=== PATIENT | female | born 1990 | race Caucasian/White ===

== ENCOUNTER 2019-10-07 15:30 | Emergency (ER) | payer OTHER ==
[2019-10-07 15:51] VITALS: BP 111/65; PULSE 107; TEMP 98.9; BMI 25.7
--- NOTE | 2019-10-07 15:52 | PDOC ---
Rapid Medical Evaluation Chief Complaint: Headache Time Seen by Provider: 10/07/19 15:47 Medical Evaluation: 10/07/19 15:49 I have performed a brief in-person evaluation of this patient. The patient presents with a chief complaint of:+ intracranial HTN, severe headache s/p spinal tap last - seen by Eduar yesterday, given Fiorocet with no relief. Pertinent physical exam findings: pale, + photophobic, squirming/ leaning over and has difficulty sitting. I have ordered the following: CBC, CMP, UA, The patient will proceed to the ED for further evaluation. Discharge Disposition - Diagnosis Headache after spinal puncture - Referrals - Patient Instructions - Post Discharge Activity
[2019-10-07 16:37] LABS: BASO % 0.9 % (0-2.0); EOS % 1.5 % (0-4.5); HEMATOCRIT 40.4 % (32.4-45.2); HEMOGLOBIN 13.4 GM/dL (10.7-15.3); LYMPH % 22.8 % (8-40); MCH 27.6 pg (25.7-33.7); MCHC 33.1 g/dl (32.0-36.0); MEAN CELL VOLUME 83.5 fl (80-96); MEAN PLT VOLUME 9.1 fl (7.5-11.1); MONO % 6.9 % (3.8-10.2); NEUT % 67.9 % (42.8-82.8); PLATELET COUNT 233 K/MM3 (134-434); RBC 4.84 M/mm3 (3.60-5.2); RDW 13.2 % (11.6-15.6); WHITE BLOOD COUNT 9.1 K/mm3 (4.0-10.0)
[2019-10-07 16:50] LABS: INR 1.18 (0.83-1.09); PROTHROMBIN TIME (PATIENT) 13.9 SEC (9.7-13.0)
[2019-10-07 17:02] LABS: ALBUMIN 3.8 g/dl (3.4-5.0); BILIRUBIN,TOTAL 0.4 mg/dL (0.2-1); BLOOD UREA NITROGEN 18.5 mg/dL (7-18); CREATININE 0.8 mg/dL (0.55-1.3); POTASSIUM 3.4 mmol/L (3.5-5.1); TOT PROT 6.9 g/dl (6.4-8.2)
--- NOTE | 2019-10-07 17:53 | PDOC ---
History of Present Illness <Gopal Jarquin - Last Filed: 10/07/19 19:02> <Debbie Arnold - Last Filed: 10/07/19 22:29> - General Chief Complaint: Headache Stated Complaint: Migraine Headache Time Seen by Provider: 10/07/19 15:47 Past History - Past Medical History COPD: No Other medical history: INTRACRANIEL HYPERTENSION - Psycho Social/Smoking Cessation Hx Smoking History: Never smoked Hx Alcohol Use: No Drug/Substance Use Hx: No <Gopal Jarquin - Last Filed: 10/07/19 19:02> <Debbie Arnold - Last Filed: 10/07/19 22:29> - Past Medical History Allergies/Adverse Reactions: Allergies Allergy/AdvReac Type Severity Reaction Status Date / Time vancomycin Allergy Verified 10/07/19 15:51 Home Medications: Ambulatory Orders Levothyroxine [Synthroid -] 125 mcg PO DAILY 10/07/19 acetaZOLAMIDE [Diamox -] 500 mg PO TID 10/07/19 *Physical Exam - Vital Signs Last Vital Signs Temp Pulse Resp BP Pulse Ox 98.9 F 107 H 16 111/65 100 10/07/19 15:47 10/07/19 15:47 10/07/19 15:47 10/07/19 15:47 10/07/19 15:47 <Gopal Jarquin - Last Filed: 10/07/19 19:02> - Vital Signs Last Vital Signs Temp Pulse Resp BP Pulse Ox 98.9 F 107 H 16 111/65 100 10/07/19 15:47 10/07/19 15:47 10/07/19 15:47 10/07/19 15:47 10/07/19 15:47 <Debbie Arnold - Last Filed: 10/07/19 22:29> ED Treatment Course - LABORATORY CBC & Chemistry Diagram: 10/07/19 16:23 10/07/19 16:23 - ADDITIONAL ORDERS Additional order review: Laboratory Results 10/07/19 10/07/19 16:23 16:23 PT with INR 13.90 H INR 1.18 H Sodium 139 Potassium 3.4 L Chloride 112 H Carbon Dioxide 19 L Anion Gap 8 BUN 18.5 H Creatinine 0.8 Est GFR (CKD-EPI)AfAm 113.86 Est GFR (CKD-EPI)NonAf 98.24 Random Glucose 77 Calcium 9.0 Total Bilirubin 0.4 AST 15 ALT 19 Alkaline Phosphatase 96 Total Protein 6.9 Albumin 3.8 10/07/19 16:23 RBC 4.84 MCV 83.5 MCHC 33.1 RDW 13.2 MPV 9.1 Neutrophils % 67.9 Lymphocytes % 22.8 Monocytes % 6.9 Eosinophils % 1.5 Basophils % 0.9 <BrittonGopal - Last Filed: 10/07/19 19:02> - LABORATORY CBC & Chemistry Diagram: 10/07/19 16:23 10/07/19 16:23 - ADDITIONAL ORDERS Additional order review: Laboratory Results 10/07/19 10/07/19 10/07/19 18:00 18:00 16:23 PT with INR 13.90 H INR 1.18 H Sodium Potassium Chloride Carbon Dioxide Anion Gap BUN Creatinine Est GFR (CKD-EPI)AfAm Est GFR (CKD-EPI)NonAf Random Glucose Calcium Total Bilirubin AST ALT Alkaline Phosphatase Total Protein Albumin Urine Color Yellow Urine Appearance Turbid Urine pH 7.5 Ur Specific [place] 1.020 Urine Protein Negative Urine Glucose (UA) Negative Urine Ketones Trace H Urine Blood Negative Urine Nitrite Negative Urine Bilirubin Negative Urine Urobilinogen 1.0 Ur Leukocyte Esterase Negative Urine HCG, Qual Negative 10/07/19 16:23 PT with INR INR Sodium 139 Potassium 3.4 L Chloride 112 H Carbon Dioxide 19 L Anion Gap 8 BUN 18.5 H Creatinine 0.8 Est GFR (CKD-EPI)AfAm 113.86 Est GFR (CKD-EPI)NonAf 98.24 Random Glucose 77 Calcium 9.0 Total Bilirubin 0.4 AST 15 ALT 19 Alkaline Phosphatase 96 Total Protein 6.9 Albumin 3.8 Urine Color Urine Appearance Urine pH Ur Specific [place] Urine Protein Urine Glucose (UA) Urine Ketones Urine Blood Urine Nitrite Urine Bilirubin Urine Urobilinogen Ur Leukocyte Esterase Urine HCG, Qual 10/07/19 16:23 RBC 4.84 MCV 83.5 MCHC 33.1 RDW 13.2 MPV 9.1 Neutrophils % 67.9 Lymphocytes % 22.8 Monocytes % 6.9 Eosinophils % 1.5 Basophils % 0.9 - Medications Given in the ED: ED Medications Discontinued Medications Generic Name Dose Route Start Last Admin Trade Name Freq PRN Reason Stop Dose Admin Caffeine Citrate 500 mg 10/07/19 18:02 10/07/19 21:40 Cafcit - IVPB 10/07/19 18:03 Not Given ONCE ONE Caffeine Citrate 600 mg 10/07/19 21:04 10/07/19 21:40 Caffeine Citrate PO 10/07/19 21:05 600 mg ONCE STA Administration Ketorolac Tromethamine 15 mg 10/07/19 18:01 10/07/19 19:08 Toradol Injection - IVPUSH 10/07/19 18:02 15 mg ONCE ONE Administration Metoclopramide HCl 10 mg 10/07/19 18:01 10/07/19 19:08 Reglan Injection - IVPUSH 10/07/19 18:02 10 mg ONCE ONE Administration <Debbie Arnold - Last Filed: 10/07/19 22:29> Medical Decision Making - Medical Decision Making 10/07/19 17:26 HPI: 29F PMH IIH, hypothyroidism c/o positional headache x5 days s/p LP performed on 10/02/19 @[facility]. LP for IIH tx. Headache is frontal, "feels like head is exploding " and starts only when pt is vertical. Asymptomatic when horizontal. Denies lightheadedness, dizziness, changes in vision/hearing, numbness/tingling/ weakness. Denies f/c, cp/sob, palpitations, abd pain, n/v. Neurologist Dr. John gave fiorcet, no relief. Allergy to Vancomycin Surgery: Gastric sleeve, 2 c-sections ROS: CONSTITUTIONAL: Denies F / C HEENT: Endorses headache (when vertical). Denies lightheadedness, dizziness, changes in vision / hearing, diplopia, blurry vision RESP: Denies SOB CARD: Denies chest pain, palpitations GI: Denies N / V / D, abdominal pain, bloody stool, inability to tolerate PO : Denies dysuria, frequency NEURO: Denies numbness, tingling, weakness MSK: Denies back pain PE: GEN: Well appearing, NAD, comfortable. AAOx3 HEENT: NC/AT, CN II-XII intact, EOMI, PERRLA. No facial asymmetry. Moist mucous membranes. Normal voice. Supple neck w/ FROM. No c-spine midline TTP. CV: S1/S2, RRR, no m/r/g LUNG: CTAB, no wheezes, crackles, rales, rhonchi. GI: soft, ndnt, +BS, no guarding, no rebound. EXTREMITIES: No obvious deformities of all extremities. SKIN: warm, dry, normal turgor PSYCH: normal mood and affect NEURO: Moving all extremities well. 5/5 UE LE strength. symmetric sensation. unable to assess ambulation 2/2 symptoms. MDM: 29F w/ positional headache (vertical only) s/p LP on 10/02/19. Afebrile, Neurologically intact. Likely post-LP headache. Unlikely meningitis, migraine headache, intracranial bleed - RME eval: labs sent - Dr. John contacted; awaiting call back - likely needs blood patch (anesthesiology) 10/07/19 18:04 Discussed w/ Dr. John: was a difficult tap, likely post LP headache, recommends cocktail of 10mg reglan, 15mg toradol, and 500mg caffeine. Blood patch if cocktail does not work. - reglan, toradol, caffeine - fluids (will run w/ caffeine) - 2nd liter of fluids after - baseline ekg discussed plan w/ patient who is amenable 10/07/19 18:45 Discussed pt w/ anesthesiology - reassess pt s/p cocktail; can do blood patch tonight in ED w/ assistance 10/07/19 19:02 signed out to PM team <Gopal Jarquin - Last Filed: 10/07/19 19:02> Discharge <Gopal Jarquin - Last Filed: 10/07/19 19:02> - Discharge Information Problems reviewed: Yes <Debbie Arnold - Last Filed: 10/07/19 22:29> - Discharge Information Clinical Impression/Diagnosis: Headache after spinal puncture Condition: Stable Disposition: HOME - Follow up/Referral Referrals: Tino Hood [Primary Care Provider] - Antonio John MD [Staff Physician] - - Patient Discharge Instructions Patient Printed Discharge Instructions: DI for Post-Spinal Puncture Headache Additional Instructions: Please follow-up with Dr. John - Post Discharge Activity
[2019-10-07] MEDS ORDERED: KETOROLAC TROMETHAMINE 15 MG/ML VIAL IVPUSH ONE (18:01)
[2019-10-07] MEDS ORDERED: METOCLOPRAMIDE HCL INJECTION 10 MG/2 ML VIAL IVPUSH ONE (18:01)
[2019-10-07] MEDS ORDERED: CAFFEINE CITRATE 60 MG/3 ML VIAL IVPB ONE (18:02)
--- NOTE | 2019-10-07 18:22 | PDOC ---
Documentation entered by Chantel Dial SCRIBE, acting as scribe for Debbie Arnold MD. Debbie Arnold MD: This documentation has been prepared by the naniibe, Chantel Dial SCRIBE, under my direction and personally reviewed by me in its entirety. I confirm that the documentation accurately reflects all work, treatment, procedures, and medical decision making performed by me. Attending Attestation - Resident Resident Name: Gopal Jarquin - ED Attending Attestation I have performed the following: I have examined & evaluated the patient, The case was reviewed & discussed with the resident, I agree w/resident's findings & plan, Exceptions are as noted - HPI HPI: 10/07/19 18:21 29-year-old female with a history of pseudotumor cerebri had a lumbar puncture done about a week ago and is since that time had a persistent headache She saw the neurologist Dr. Witt who placed her on Fioricet but this did not help - Physicial Exam PE: 10/07/19 21:33 GENERAL/CONSTITUTIONAL: No fever or chills. No weakness. HEAD, EYES, EARS, NOSE AND THROAT: No change in vision. No ear pain or discharge. No sore throat. CARDIOVASCULAR: No chest pain or shortness of breath. RESPIRATORY: No cough, wheezing, or hemoptysis. GASTROINTESTINAL: No nausea, vomiting, diarrhea or constipation. GENITOURINARY: No dysuria, frequency, or change in urination. MUSCULOSKELETAL: No joint or muscle swelling or pain. No neck or back pain. SKIN: No rash NEUROLOGIC: No headache, vertigo, loss of consciousness, or change in strength/ sensation. ENDOCRINE: No increased thirst. No abnormal weight change. HEMATOLOGIC/LYMPHATIC: No anemia, easy bleeding, or history of blood clots. ALLERGIC/IMMUNOLOGIC: No hives or skin allergy. - Medical Decision Making 10/07/19 22:17 Dr. Flowers was consulted and recommended caffeine citrate for the patient Patient received 600 mg p.o. caffeine citrate Plan if her headache does not resolve we have spoke with anesthesia and they would do a blood patch 10/07/19 22:20 Labs reviewed CBC is unremarkable Negative test Creatinine and glucose within normal limits 10/07/19 22:25 Patient did receive 600 mg of caffeine citrate and her headache resolved It was explained to her that she does have recurrent headache later to please call Dr. Witt and try to arrange with anesthesia to have a blood patch done
[2019-10-07 18:37] LABS: PH,URINE 7.5 (5.0-8.0); URINE APPEARANCE TURBID; URINE BILIRUBIN NEGATIVE (NEGATIVE); URINE COLOR YELLOW; URINE GLUCOSE (UA) NEGATIVE (NEGATIVE); URINE KETONE TRACE (NEGATIVE); URINE LEUK ESTERASE NEGATIVE (NEGATIVE); URINE NITRITE NEGATIVE (NEGATIVE); URINE PROTEIN NEGATIVE (NEGATIVE)
[2019-10-07] MEDS ORDERED: KETOROLAC TROMETHAMINE 15 MG/ML VIAL ONE (18:45)
[2019-10-07] MEDS ORDERED: METOCLOPRAMIDE HCL INJECTION 10 MG/2 ML VIAL ONE (18:45)
[2019-10-07] MEDS ORDERED: CAFFEINE CITRATE 60 MG/3 ML VIAL (ORAL USE ONLY) PO STA (21:04)
[2019-10-07] MEDS ORDERED: SODIUM CHLORIDE 500 ML IV STA (22:13)
--- NOTE | 2019-10-08 10:47 | EKG ---
Test Reason : Blood Pressure : / mmHG Vent. Rate : 072 BPM Atrial Rate : 072 BPM P-R Int : 172 ms QRS Dur : 106 ms QT Int : 412 ms P-R-T Axes : 052 016 032 degrees QTc Int : 451 ms NORMAL SINUS RHYTHM POSSIBLE LEFT ATRIAL ENLARGEMENT INCOMPLETE RIGHT BUNDLE BRANCH BLOCK BORDERLINE ECG NO PREVIOUS ECGS AVAILABLE Confirmed by KASEY BRENNER MD ([id number]) on 10/08/2019 10:47:06 AM Referred By: Confirmed By:KASEY BRENNER MD
== END 2019-10-07 22:48 | disposition home or self-care (01) ==
LOC: JER 15:30
PROC: 3E033GC Introduction of Other Therapeutic Substance into Peripheral Vein, Percutaneous Approach (ICD-10-PCS; principal; 2019-10-07)
PROC: 3E0333Z Introduction of Anti-inflammatory into Peripheral Vein, Percutaneous Approach (ICD-10-PCS; 2019-10-07)
DX: G97.1 Other reaction to spinal and lumbar puncture (principal); R51 Headache; G93.2 Benign intracranial hypertension
CPT/HCPCS: 36415; 80053; 81003; 84703; 85025; 85610; 90675; 93005; 93010; 99283-25

== ENCOUNTER 2020-09-21 04:23 | Day surgery (SDC) | payer OTHER ==
[2020-09-16 12:54] VITALS: BMI 25.7
[2020-09-21] MEDS ORDERED: MIDAZOLAM HCL 2 MG/2 ML SINGLE DOSE VIAL ONE (07:02)
[2020-09-21] MEDS ORDERED: ROCURONIUM BROMIDE 100 MG/10 ML VIAL ONE (07:03)
[2020-09-21] MEDS ORDERED: PROPOFOL 20 ML ONE ×2 (07:03)
[2020-09-21] MEDS ORDERED: SUCCINYLCHOLINE CHLORIDE 200 MG/10 ML SYRINGE ONE (07:03)
[2020-09-21] MEDS ORDERED: LIDOCAINE HCL/PF 2% SDV 5ML VIAL ONE (07:04)
[2020-09-21] MEDS ORDERED: KETOROLAC TROMETHAMINE 30 MG/1 ML VIAL ONE (08:20)
[2020-09-21] MEDS ORDERED: oxyCODONE HCL 5 MG TABLET PO PRN ×2 (09:02→09:15)
[2020-09-21] MEDS ORDERED: ONDANSETRON 4 MG/2 ML VIAL IVPUSH PRN ×2 (09:02→09:15)
[2020-09-21] MEDS ORDERED: IBUPROFEN 800 MG/8 ML IJ IVPB PRN (09:15)
[2020-09-21] MEDS ORDERED: IBUPROFEN 600 MG TABLET (FP) PO PRN (09:15)
[2020-09-21] MEDS ORDERED: LACTATED RINGERS SOLUTION 1,000 ML IV SCH (09:15)
[2020-09-21] MEDS ORDERED: ELECTROLYTE-148 SOLN 1,000 ML IV SCH (09:15)
[2020-09-21 11:56] VITALS: BP 101/68; PULSE 68; TEMP 97.8
== END 2020-09-21 11:20 | disposition home or self-care (01) ==
LOC: JASU-SURG 04:23
PROVIDERS: ATTEND Obstetrics & Gynecology
PROC: 0UDB7ZX Extraction of Endometrium, Via Natural or Artificial Opening, Diagnostic (ICD-10-PCS; 2020-09-21)
PROC: 0U5B8ZZ Destruction of Endometrium, Via Natural or Artificial Opening Endoscopic (ICD-10-PCS; principal; 2020-09-21 07:30)
PROC: 0UDB8ZX Extraction of Endometrium, Via Natural or Artificial Opening Endoscopic, Diagnostic (ICD-10-PCS; 2020-09-21 07:30)
PROC: 0UB97ZX Excision of Uterus, Via Natural or Artificial Opening, Diagnostic (ICD-10-PCS; 2020-09-21 07:30)
DX: N92.0 Excessive and frequent menstruation with regular cycle (principal); N84.0 Polyp of corpus uteri
CPT/HCPCS: 84703; 88305-TC; 94760